=== PATIENT | female | born 1985 | race Native Hawaiian/Other Pacific Islander ===

== ENCOUNTER 2021-10-09 22:00 | Emergency (ER) | payer OTHER ==
[~2021-10-09] VITALS: Ht 170.2 cm; Wt 117.9 kg
[2021-10-09 23:21] VITALS: BP 138/92; TEMP 98.4
== END 2021-10-09 23:21 | disposition home or self-care (01) ==
LOC: ED 22:00
DX: L03.211 Cellulitis of face (principal)
CPT/HCPCS: 96372; 99283; J0696; J2920